=== PATIENT | female | born 1975 | race Caucasian/White ===

== ENCOUNTER 2017-03-26 05:27 | Emergency (ER) | payer OTHER ==
--- NOTE | 2017-03-26 06:43 | DIAGNOSTIC IMAGING REPORT ---
PROCEDURE: XR CHEST 1 VIEW INDICATION: CHEST PAIN TECHNIQUE: Portable AP view (0605 hours). COMPARISON: None. FINDINGS: Allowing for left pacemaker /defibrillator, and suboptimal inspiration, lungs are clear. Heart and mediastinum are normal. Thorax is normal. IMPRESSION: 1. Left subclavian pacemaker/defibrillator. 2. Otherwise negative chest.
--- NOTE | 2017-03-26 07:08 | ED NURSING NOTES ---
Clinical Report - Nurses [facility] [address] [place] [address] 03/26/2017 5:28 [id number] Triage time 05:31. Chief Complaint: CHEST PAIN and SHORTNESS OF BREATH. --05:38 Rossy Barrera R.N. 05:31 03/26/17. BP: 189/74 taken on the left arm, while lying. HR: 84 (regular and normal rate). RR: 18 (regular and unlabored). O2 saturation: 100% on room air. Temp: 97.8 F (oral). Pain level now: 05/07. --05:38 Rossy Barrera R.N. Weight: 74.3 kg stated. Height/Length: 59 inches Per Patient. BMI: 33.1. --05:37 Rossy Barrera R.N. Medications Lasix Oral (Tablet 20 mg) 1 tablet, daily. --05:33 Rossy Barrera R.N. Lisinopril Oral (Tablet 20 mg) 1 tablet, daily. --05:33 Rossy Barrera R.N. Allergies No Known Drug Allergy. --05:33 Rossy Barrera R.N. History Arrived by private vehicle. Historian: patient. Primary physician ([place]). This started just prior to arrival. Onset was abrupt. Symptoms still present (about 0200 AM). She has had moderate difficulty breathing (0200 AM - still present). She has had nausea. PAST MEDICAL HX: Last normal menstrual period- February 07 2017. SOCIAL HX: Light tobacco smoker (cigarette)- less than 1/2 a pack per day. No alcohol use or drug use. SELF HARM ASSESSMENT: A self harm assessment was performed. The patient answered "no" to the question "Have you recently felt down, depressed, or hopeless?", "Have you noticed less interest or pleasure in doing things?", "Do you have thoughts of harming or killing yourself?", "Are you here because you tried to hurt yourself?", "Have you ever tried to hurt yourself before today?", "Have you recently had thoughts about harming or killing others?" and "Do you have any dangerous items in your possession?". --05:38 Rossy Barrera R.N. PROBLEMS: Pacemaker. Cardiomyopathy. --05:35 Rossy Barrera R.N. ADDITIONAL SURGERIES: Cholecystectomy. . Pacemaker. --05:35 Rossy Barrera R.N. Interventions ID band on patient. --05:38 Rossy Barrera R.N. PHYSICAL ASSESSMENT Ambulatory to room. GENERAL / NEURO / PSYCH: Alert. Oriented X 4. Appears in no acute distress. HEENT: Mucous membranes are pink. RESPIRATORY: Respirations not labored. Chest nontender. Breath sounds within normal limits. CVS: Cardiac rhythm: A/V sequential pacing. Heart sounds within normal limits. Pulses within normal limits. Capillary refill less than 2 seconds. GI / : Abdomen soft and nontender. EXTREMITIES: No lower extremity edema. SKIN: Skin is warm and dry. Normal skin turgor. Skin is non-tender. --05:39 Rossy Barrera R.N. 06:18 03/26/17. BP: 120/74. HR: 78. O2 saturation: 100% on nasal cannula at 2 liters/minute. --06:20 Brian Meyer R.N. NURSING PROGRESS NOTES 05:34 03/26/2017 Aspirin PO 325 mg given. Allergies verified and confirmed 5 rights. --05:35 Yosvany Wheeler R.N. Two patient identifiers checked. Call light placed in reach. Side rails up x 1. Bed placed in lowest position. Brakes of bed on. --05:39 Rossy Barrera R.N. Patient ready for evaluation- chart flagged. --05:39 Rossy Barrera R.N. teletypesetter monitor, pulse oximeter and NIBP monitor placed on patient; front desk monitor- Lead II; monitor alarms on. --05:39 Rossy Barrera R.N. Reassurance given to the patient. --05:40 Rossy Barrera R.N. EKG time: (0538 AM). EKG was ordered, performed by a tech and shown to the ED physician. --05:40 Kisha Maldonado 05:40 03/26/2017 Site #1 started via IV in the left antecubital space with an 20g angiocath, with aseptic technique and good blood return; one attempt. Blood drawn: rainbow set. Labeled in the presence of the patient and sent to the lab. Saline lock flushed with 10 mL saline. --05:45 Brian Meyer R.N. 05:49 03/26/2017 Nitroglycerin SL Tablets 0.4 mg given. Allergies verified and confirmed 5 rights. --05:49 Brian Meyer R.N. ( 02 applied per order). --05:49 Brian Meyer R.N. 05:56 03/26/2017 Nitroglycerin SL Tablets 0.4 mg given. Allergies verified and confirmed 5 rights. --05:56 Brian Meyer R.N. ( Portable xray at bedside). --06:05 Rossy Barrera R.N. 06:19 03/26/2017 Nitroglycerin SL Tablets 0.4 mg given. Allergies verified and confirmed 5 rights. --06:19 Brian Meyer R.N. 06:27 03/26/2017 NITROGLYCERIN PASTE Topical Paste 1 inch. Applied to the right chest. Allergies verified and confirmed 5 rights. --06:27 Rossy Barrera R.N. 06:15 03/26/17. BP: 124/66 taken on the right arm, while lying. HR: 89 (regular and normal rate). RR: 18 (regular, unlabored and shallow). O2 saturation: 100% on nasal cannula at 2 liters/minute. Temp: deferred. Pain level now: 12/07. --06:28 Rossy Barrera R.N. Reassessment after medication administered. Overall patient status is improved- she states feels better. CVS: The patient reports left-sided chest pain is gone now, still present but improving and currently described as radiating to the neck and associated with shortness of breath. --06:29 Rossy Barrera R.N. EKG time: (0633 AM). EKG was ordered, performed by a tech and shown to the ED physician. ( 2nd EKG). --06:36 Kisha Maldonado ( ADMIT H+P FORM GIVEN). --06:45 [place], ER Materials Scientist 06:51 03/26/2017 Insulin Reg Subcutaneous 5 unit given. Given in the left upper arm. Allergies verified and confirmed 5 rights. (witnessed by Fidel Rn). --06:51 Rossy Barrera R.N. Finger stick glucose: 267 mg/dL; ordered; performed by tech; result shown to the ED physician. --08:44 Ginger Rojo 07:35. Patient ID band checked for patient name and birthdate: patient confirmed. Blood samples drawn from the right antecubital space with butterfly by nurse per protocol ; labeled in presence of the patient and sent to lab held: [facility]. ( Patient reported to this RN that she wanted to leave AMA rather than being admitted. She stated, "I have to get home to my kids, and I have a court date on Tuesday I can't miss." ED Physician notified. This RN was present while ED physician extensively explained the risks of leaving the hospital AMA and the benefits of staying for further evaluation and treatment. Patient declined to be admitted, stating "I can't stay. I want to be with my kids."). --08:50 Iram Jackson R.N. 07:10 03/26/17. BP: 128/59. HR: 84. RR: 20. O2 saturation: 100%. Temp: deferred. Pain level now: 0/10. --08:50 Iram Jackson R.N. 08:57 03/26/17. Patient informed about reason for wait and about plan of care. --08:57 Iram Jackson R.N. 08:56 03/26/17. BP: 117/63. HR: 75. RR: 19. O2 saturation: 98%. Temp: deferred. Pain level now: 0/10. --08:57 Iram Jackson R.N. 09:41 03/26/2017 Metformin PO Tablets 1000 mg given. Allergies verified and confirmed 5 rights. --09:41 Iram Jackson R.N. ( Nitro paste removed at 09:00). --10:06 Iram Jackson R.N. DISPOSITION / DISCHARGE 09:41 03/26/17. BP: 125/73. HR: 79. RR: 17. O2 saturation: 98%. Temp: 98.1 F. Pain level now: 010. --09:44 Iram Jackson R.N. 09:40 03/26/2017 Site #1 removed upon discharge. Manual pressure and bandaid applied. --10:04 Iram Jackson R.N. 09:44 03/26/17. No learning barriers present. Discharge instructions provided and reviewed with the patient. Reviewed warnings. Reviewed medication(s). Treatments reviewed. Reviewed referrals. Reviewed diet. Activity restrictions reviewed. Patient verbalized understanding. Written instructions provided in [place]. The patient was discharged by the physician. She was discharged home. She left the Emergency Department ambulatory and via private vehicle. Patient driving. --09:44 Iram Jackson R.N. Locked/Released at 03/26/2017 14:13 by Iram Jackson R.N.
--- NOTE | 2017-03-26 07:08 | ED CLINICAL REPORT ---
Clinical Report - Physicians/Mid Levels [facility] [address] [place] [address] 03/26/2017 5:28 Patient: KESHAWN HOLMAN Time Seen: 05:41. Arrived- By private vehicle. HISTORY OF PRESENT ILLNESS Chief Complaint: CHEST PAIN. It is described as pressure and it is described as located in the central chest area. This started at 2 AM. It has been constant and waxing/waning. Onset during rest; could not sleep. At its maximum, severity described as 5 / 10. When seen in the E.D., severity described as 5 / 10. Modifying factors- (no change with palpation). Not worsened by deep breaths. No nausea, vomiting, difficulty breathing or diaphoresis. Similar symptoms previously: None. Recent medical care: ( 7 mos ago with Katerine Alcantara). Not recently seen/assessed. REVIEW OF SYSTEMS Has had a tubal ligation. No fever, pedal edema, headache or sore throat or throat. No blurred vision, abdominal pain or pain, fever or eye irritation. No ear pain, cough, difficulty breathing, black stools or bloody stools. No diarrhea, nausea, vomiting, joint pain or difficulty with urination. All systems otherwise negative, except as recorded above. PAST HISTORY PCP: [facility] Nora Alcantara (ret.) Dr Denney - Cardiology PROBLEMS: Pacemaker. Cardiac Arrest 2006 Cardiomyopathy. ADDITIONAL SURGERIES: Cholecystectomy. . Pacemaker. Tubal ligation Hosp: 2006 for cardiac arrest. No history of pulmonary embolism. Risk factors for heart disease- smoking, diabetes and hypertension; for DVT/pulmonary embolism- obesity. Denies the following risk factors for heart disease - elevated cholesterol and family history of heart disease. Denies the following risk factors for thoracic aortic dissection - , connective tissue disorder], prior history of thoracic aortic dissection and coarctation of the aorta. Denies the following risk factors for DVT/PE - history of DVT and pulmonary embolism, recent surgery, recent NC and congestive heart failure. Denies the following risk factors for DVT/PE - cancer, estrogens, immobility and advanced in age. SOCIAL HISTORY Current every day smoker. ADDITIONAL NOTES The nursing notes have been reviewed. PHYSICAL EXAM Vital Signs: 03/26/2017 05:51 O2 saturation: 100%. 03/26/2017 05:31 BP: 189/74. HR: 84. RR: 18. O2 saturation: 100%. Temp: 97.8 F. Pain level now: 10. Appearance: Alert. No acute distress. Eyes: Eyes normal inspection. ENT: Pharynx normal. CVS: Heart sounds normal. Respiratory: No respiratory distress. Breath sounds normal. Chest nontender. Abdomen: Soft and nontender. Skin: Skin warm. Normal skin color. Extremities: Extremities exhibit normal ROM. No lower extremity edema. Neuro: No alteration in mental status. LABS, X-RAYS, AND EKG EKG: No acute ischemia. Normal sinus rhythm. Rate: 70. Normal P waves. Q waves in lead III, aVF, V1, V2, V3, V4, V5 and V6. Non-specific ST segment / T wave abnormalities. Chest X-ray: (NEG EXCEPT PACEMAKER/RR PROCEDURE: XR CHEST 1 VIEW INDICATION: CHEST PAIN TECHNIQUE: Portable AP view (0605 hours). COMPARISON: None. FINDINGS: Allowing for left pacemaker /defibrillator, and suboptimal inspiration, lungs are clear. Heart and mediastinum are normal. Thorax is normal. IMPRESSION: 1. Left subclavian pacemaker/defibrillator. 2. Otherwise negative chest. Dictated by: ARABELLA RICHARDSON MD D: LENA;03/26/17642 <Electronically signed by ARABELLA RICHARDSON MD in OV> 03/26/17642). The X-rays were independently viewed by me and interpreted by the radiologist. Laboratory Tests: CBC w Diff: (RADHA: 03/26/2017 05:35) ( MsgRcvd 03/26/2017 05:43) Final results Test Result Flag Units (Reference) WHITE BLOOD COUNT 10.9 K/uL (4.5-11.5) RED BLOOD COUNT 4.93 M/uL (4.00-5.20) HEMOGLOBIN 14.6 gm/dL (12.0-16.0) HEMATOCRIT 43.4 % (36.0-46.0) MEAN CELL VOLUME 88 fL (80-100) MEAN CORPUSCULAR HGB 30 pg (26-34) MEAN CORPUSCULAR HGB CONC 34 g/dL (31-37) RED CELL DISTRIBUTION WIDTH 13.9 % (11.6-14.8) PLATELET COUNT 260 K/uL (150-400) NEUTROPHIL % 59.5 % (50-75) LYMPH % 31.4 % (25-40) MONO % 7.4 % (3-14) EOSINOPHIL % 1.2 % (0-4) BASOPHIL % 0.5 % (0-2) Troponin-I: (RADHA: 03/26/2017 07:32) ( [facility] 03/26/2017 07:58) Final results Test Result Flag Units (Reference) TROPONIN I <0.05 ng/mL (0.00-1.5) TROPONIN REFERENCE RANGE:<0.1 NEGATIVE0.1-1.5 INDETERMINANT>1.5 POSITIVE CHEM 13 PANEL: (RADHA: 03/26/2017 05:35) ( [facility] 03/26/2017 06:07) Final results Test Result Flag Units (Reference) GLUCOSE 347 H mg/dL (70-110) BUN 14 mg/dL (7-18) CREATININE 0.7 mg/dL (0.6-1.3) Estimated GFR >60 mL/min Estimated GFR- >60 mL/min Note: Persistent reduction over 3 months in eGFR<60 mL/min/1.73 m2 defines CKD. Patients with eGFR values>=60 mL/min/1.73 m2 may also have CKD if evidence ofpersistent proteinuria. Additional information may be foundat [email or web address].org. SODIUM 133 L mmol/L (136-145) POTASSIUM 3.8 mmol/L (3.5-5.1) CHLORIDE 96 L mmol/L (98-107) CARBON DIOXIDE 27 mmol/L (21-32) CALCIUM 9.0 mg/dL (8.5-10.1) TOTAL PROTEIN 7.7 g/dL (6.4-8.2) ALBUMIN 3.5 g/dL (3.3-5.0) BILIRUBIN, TOTAL 0.5 mg/dL (0.0-1.0) ALKALINE PHOSPHATASE 79 U/L (46-116) AST (SGOT) 14 L U/L (15-37) ALT (SGPT) 22 U/L (12-78) MAGNESIUM 1.6 L mg/dL (1.8-2.4) CPK 47 U/L (24-260) TROPONIN I <0.05 ng/mL (0.00-1.5) TROPONIN REFERENCE RANGE:<0.1 NEGATIVE0.1-1.5 INDETERMINANT>1.5 POSITIVE . PROGRESS AND PROCEDURES Course of Care: 05:59 03/26/17. Initial evaluation is complete. Pain decreased from 6 to 4 with single NTG, 06:18 03/26/17. Pain is 2/10 after second NTG Blood sugar is 375, troponin is negative Wells criteria for PE 0 06:52 03/26/17. Dr Armenta agrees to care for patient. 07:27 03/26/17. Pt states that she will not be admitted. A long discussion does not change her mind. She will stay for a second troponin. 08:28 03/26/17. Second troponin is negative. With two EKGs and two troponins negative for NC at about 6 hours after the onset of pain, it is unlikely that this is an NC. It certainly could be unstable angina. She really needs admission and stress testing. She is adamant that she will not stay. I explain that the stay would be short and that she would be able to meet her obligations. She still wants to go home despite of a possible fatal outcome. She now tells me that she was on metformin 1000 mg per day but had stopped taking it. Critical care performed (40 minutes). Time is exclusive of separately billable procedures. Time includes: direct patient care, patient reassessment, coordination of patient care, interpretation of data (laboratory data and chest xrays), review of patient's medical records, medical consultation and documentation of patient care- see progress notes. Wells clinical prediction rule (PE): No clinical symptoms of DVT, other diagnosis less likely than PE, immobilization or surgery within 4wks, previous DVT or PE or hemoptysis. No malignancy. Heart rate less than 100 per minute. Disposition orders written (BUT PATIENT REFUSED ADMISSION). Disposition: Discharged (AMA). CLINICAL IMPRESSION Chest pain. Clinical picture does not suggest pulmonary edema or embolism, myocardial infarction, aortic dissection or pneumonia. Clinical picture does not suggest pneumothorax. DIABETES POOR CONTROL. INSTRUCTIONS (YOU MAY BE HAVING A HEART ATTACK YOU NEED FURTHER BLOOD AND EKG TESTING YOU NEED A STRESS TEST. YOU NEED TO BE ADMITTED TO THE HOSPITAL. YOU STAND A SIGNIFICANT CHANCE OF DYING IF YOU GO HOME. IF YOU WANT TO TAKE CARE OF YOUR CHILDREN PLEASE STAY. THEY WILL NEED YOU. IF YOU CHANGE YOUR MIND OR YOUR CHEST PAIN RETURNS PLEASE RETURN TO THE ED CALL DR DENNEY ON TUESDAY AND BE SEEN TUESDAY IF POSSIBLE. TAKE A BABY ASPIRIN A DAY.). Prescription Medications: Nitrostat 0.4 mg: dissolve 1 tablet under tongue every 5 minutes as needed for chest pain. Dispense one hundred (100). No refills. Substitution is permissible. Metformin 500 mg: Take 1 orally every 12 hours. Dispense thirty (30). No refills. Follow-up with: Marry Denney MD, Cardiology, , [facility] - [address] [facility], [facility], [address] Follow up Tuesday in three days. Call for the next available appointment. (Electronically signed by Aaron Patel MD 03/26/2017 17:52)
--- NOTE | 2017-03-26 07:08 | ED CLINICAL REPORT ---
Clinical Report - Physicians/Mid Levels [facility] [address] [place] [address] 03/26/2017 5:28 Patient: KESHAWN HOLMAN Time Seen: 05:41. Arrived- By private vehicle. HISTORY OF PRESENT ILLNESS Chief Complaint: CHEST PAIN. It is described as pressure and it is described as located in the central chest area. This started at 2 AM. It has been constant and waxing/waning. Onset during rest; could not sleep. At its maximum, severity described as 5 / 10. When seen in the E.D., severity described as 5 / 10. Modifying factors- (no change with palpation). Not worsened by deep breaths. No nausea, vomiting, difficulty breathing or diaphoresis. Similar symptoms previously: None. Recent medical care: ( 7 mos ago with Katerine Alcantara). Not recently seen/assessed. REVIEW OF SYSTEMS Has had a tubal ligation. No fever, pedal edema, headache or sore throat or throat. No blurred vision, abdominal pain or pain, fever or eye irritation. No ear pain, cough, difficulty breathing, black stools or bloody stools. No diarrhea, nausea, vomiting, joint pain or difficulty with urination. All systems otherwise negative, except as recorded above. PAST HISTORY PCP: [facility] Nora Alcantara (ret.) Dr Denney - Cardiology PROBLEMS: Pacemaker. Cardiac Arrest 2006 Cardiomyopathy. ADDITIONAL SURGERIES: Cholecystectomy. . Pacemaker. Tubal ligation Hosp: 2006 for cardiac arrest. No history of pulmonary embolism. Risk factors for heart disease- smoking, diabetes and hypertension; for DVT/pulmonary embolism- obesity. Denies the following risk factors for heart disease - elevated cholesterol and family history of heart disease. Denies the following risk factors for thoracic aortic dissection - , connective tissue disorder], prior history of thoracic aortic dissection and coarctation of the aorta. Denies the following risk factors for DVT/PE - history of DVT and pulmonary embolism, recent surgery, recent OH and congestive heart failure. Denies the following risk factors for DVT/PE - cancer, estrogens, immobility and advanced in age. SOCIAL HISTORY Current every day smoker. ADDITIONAL NOTES The nursing notes have been reviewed. PHYSICAL EXAM Vital Signs: 03/26/2017 05:51 O2 saturation: 100%. 03/26/2017 05:31 BP: 189/74. HR: 84. RR: 18. O2 saturation: 100%. Temp: 97.8 F. Pain level now: 10. Appearance: Alert. No acute distress. Eyes: Eyes normal inspection. ENT: Pharynx normal. CVS: Heart sounds normal. Respiratory: No respiratory distress. Breath sounds normal. Chest nontender. Abdomen: Soft and nontender. Skin: Skin warm. Normal skin color. Extremities: Extremities exhibit normal ROM. No lower extremity edema. Neuro: No alteration in mental status. LABS, X-RAYS, AND EKG EKG: No acute ischemia. Normal sinus rhythm. Rate: 70. Normal P waves. Q waves in lead III, aVF, V1, V2, V3, V4, V5 and V6. Non-specific ST segment / T wave abnormalities. Chest X-ray: (NEG EXCEPT PACEMAKER/RR PROCEDURE: XR CHEST 1 VIEW INDICATION: CHEST PAIN TECHNIQUE: Portable AP view (0605 hours). COMPARISON: None. FINDINGS: Allowing for left pacemaker /defibrillator, and suboptimal inspiration, lungs are clear. Heart and mediastinum are normal. Thorax is normal. IMPRESSION: 1. Left subclavian pacemaker/defibrillator. 2. Otherwise negative chest. Dictated by: ARABELLA RICHARDSON MD D: LENA;03/26/17642 <Electronically signed by ARABELLA RICHARDSON MD in [facility]> 03/26/17642). The X-rays were independently viewed by me and interpreted by the radiologist. Laboratory Tests: CBC w Diff: (RADHA: 03/26/2017 05:35) ( MsgRcvd 03/26/2017 05:43) Final results Test Result Flag Units (Reference) WHITE BLOOD COUNT 10.9 K/uL (4.5-11.5) RED BLOOD COUNT 4.93 M/uL (4.00-5.20) HEMOGLOBIN 14.6 gm/dL (12.0-16.0) HEMATOCRIT 43.4 % (36.0-46.0) MEAN CELL VOLUME 88 fL (80-100) MEAN CORPUSCULAR HGB 30 pg (26-34) MEAN CORPUSCULAR HGB CONC 34 g/dL (31-37) RED CELL DISTRIBUTION WIDTH 13.9 % (11.6-14.8) PLATELET COUNT 260 K/uL (150-400) NEUTROPHIL % 59.5 % (50-75) LYMPH % 31.4 % (25-40) MONO % 7.4 % (3-14) EOSINOPHIL % 1.2 % (0-4) BASOPHIL % 0.5 % (0-2) Troponin-I: (RADHA: 03/26/2017 07:32) ( [facility] 03/26/2017 07:58) Final results Test Result Flag Units (Reference) TROPONIN I <0.05 ng/mL (0.00-1.5) TROPONIN REFERENCE RANGE:<0.1 NEGATIVE0.1-1.5 INDETERMINANT>1.5 POSITIVE CHEM 13 PANEL: (RADHA: 03/26/2017 05:35) ( [facility] 03/26/2017 06:07) Final results Test Result Flag Units (Reference) GLUCOSE 347 H mg/dL (70-110) BUN 14 mg/dL (7-18) CREATININE 0.7 mg/dL (0.6-1.3) Estimated GFR >60 mL/min Estimated GFR- >60 mL/min Note: Persistent reduction over 3 months in eGFR<60 mL/min/1.73 m2 defines CKD. Patients with eGFR values>=60 mL/min/1.73 m2 may also have CKD if evidence ofpersistent proteinuria. Additional information may be foundat www.[email or web address].org. SODIUM 133 L mmol/L (136-145) POTASSIUM 3.8 mmol/L (3.5-5.1) CHLORIDE 96 L mmol/L (98-107) CARBON DIOXIDE 27 mmol/L (21-32) CALCIUM 9.0 mg/dL (8.5-10.1) TOTAL PROTEIN 7.7 g/dL (6.4-8.2) ALBUMIN 3.5 g/dL (3.3-5.0) BILIRUBIN, TOTAL 0.5 mg/dL (0.0-1.0) ALKALINE PHOSPHATASE 79 U/L (46-116) AST (SGOT) 14 L U/L (15-37) ALT (SGPT) 22 U/L (12-78) MAGNESIUM 1.6 L mg/dL (1.8-2.4) CPK 47 U/L (24-260) TROPONIN I <0.05 ng/mL (0.00-1.5) TROPONIN REFERENCE RANGE:<0.1 NEGATIVE0.1-1.5 INDETERMINANT>1.5 POSITIVE . PROGRESS AND PROCEDURES Course of Care: 05:59 03/26/17. Initial evaluation is complete. Pain decreased from 6 to 4 with single NTG, 06:18 03/26/17. Pain is 2/10 after second NTG Blood sugar is 375, troponin is negative Wells criteria for PE 0 06:52 03/26/17. Dr Armenta agrees to care for patient. 07:27 03/26/17. Pt states that she will not be admitted. A long discussion does not change her mind. She will stay for a second troponin. 08:28 03/26/17. Second troponin is negative. With two EKGs and two troponins negative for OH at about 6 hours after the onset of pain, it is unlikely that this is an OH. It certainly could be unstable angina. She really needs admission and stress testing. She is adamant that she will not stay. I explain that the stay would be short and that she would be able to meet her obligations. She still wants to go home despite of a possible fatal outcome. She now tells me that she was on metformin 1000 mg per day but had stopped taking it. Critical care performed (40 minutes). Time is exclusive of separately billable procedures. Time includes: direct patient care, patient reassessment, coordination of patient care, interpretation of data (laboratory data and chest xrays), review of patient's medical records, medical consultation and documentation of patient care- see progress notes. Wells clinical prediction rule (PE): No clinical symptoms of DVT, other diagnosis less likely than PE, immobilization or surgery within 4wks, previous DVT or PE or hemoptysis. No malignancy. Heart rate less than 100 per minute. Disposition orders written (BUT PATIENT REFUSED ADMISSION). Disposition: Discharged (AMA). CLINICAL IMPRESSION Chest pain. Clinical picture does not suggest pulmonary edema or embolism, myocardial infarction, aortic dissection or pneumonia. Clinical picture does not suggest pneumothorax. DIABETES POOR CONTROL. INSTRUCTIONS (YOU MAY BE HAVING A HEART ATTACK YOU NEED FURTHER BLOOD AND EKG TESTING YOU NEED A STRESS TEST. YOU NEED TO BE ADMITTED TO THE HOSPITAL. YOU STAND A SIGNIFICANT CHANCE OF DYING IF YOU GO HOME. IF YOU WANT TO TAKE CARE OF YOUR CHILDREN PLEASE STAY. THEY WILL NEED YOU. IF YOU CHANGE YOUR MIND OR YOUR CHEST PAIN RETURNS PLEASE RETURN TO THE ED CALL DR DENNEY ON TUESDAY AND BE SEEN TUESDAY IF POSSIBLE. TAKE A BABY ASPIRIN A DAY.). Prescription Medications: Nitrostat 0.4 mg: dissolve 1 tablet under tongue every 5 minutes as needed for chest pain. Dispense one hundred (100). No refills. Substitution is permissible. Metformin 500 mg: Take 1 orally every 12 hours. Dispense thirty (30). No refills. Follow-up with: Marry Denney MD, Cardiology, , [facility] - [address] [facility], [facility], [address] Follow up Tuesday in three days. Call for the next available appointment. (Electronically signed by Aaron Patel MD 03/26/2017 17:52)
--- NOTE | 2017-03-26 07:08 | ED ORDER SUMMARY ---
..... Patient: KESHAWN HOLMAN OrderSheet [facility] VisitID: [id number] [place] [address] 41y, F Registration Date/Time: 03/26/2017 ORDER SHEET Weight: 74.3 kg (stated) Allergies: No Known Drug Allergy GENERAL ORDERS: Guest Relations Receptionist (Continuous) (CP) (05:34 03/26/2017 JQuivey R.N. per protocol) (5:40 CBradburn R.N.) Cardiac Panel Stat (05:35 03/26/2017 JQuivey R.N. per protocol) (Ack 5:39 CHagerty ER Accounts Payable Analyst) (5:40 CBradburn R.N.) Pulse oximeter (05:35 03/26/2017 JQuivey R.N. per protocol) (5:40 CBradburn R.N.) EKG - ER Stat (05:35 03/26/2017 JQuivey R.N. per protocol) (Ack 5:39 CHagerty ER Accounts Payable Analyst) (5:40 Kathyaekimana) Oxygen (2 L/min) (NC) (05:47 03/26/2017 Susannah AKHTAR) (5:49 DDavis R.N.) - (Check [place] to see if they have records. No hospitalizations or ED records.) (05:53 03/26/2017 Susannah AKHTAR) (Ack 6:25 CHagerty ER Accounts Payable Analyst) (7:05 CHagerty ER Accounts Payable Analyst) Chest 1V Urgent (05:59 03/26/2017 Susannah AKHTAR) (6:04 CBradburn R.N.) EKG - ER Repeat Stat (06:19 03/26/2017 Susannah AKHTAR) (Ack 6:25 CHagerty ER Accounts Payable Analyst) (6:34 Viryegekimana) Troponin-I (ON A NEW BLOOD DRAW AT 8 AM.) Urgent (06:20 03/26/2017 Susannah AKHTAR) (Ack 6:25 José Miguel ER Accounts Payable Analyst) (8:26 RMarsden R.N.) POC Glucose (AT 8 AM) (06:43 03/26/2017 Susannah AKHTAR) (8:45 RMarsden R.N.) - (ADMIT FORM TO PATIENT PLEASE) (06:43 03/26/2017 Susannah AKHTAR) (6:44 [facility] ER Accounts Payable Analyst) MEDICATION ORDERS: Aspirin PO 325 mg (NOW) (05:35 03/26/2017 Lisa R.N. per protocol) (5:35 Lisa R.N.) NitroGLYCERIN SL 0.4 mg (x3 PRN Chest Pain) (05:47 03/26/2017 Susannah AKHTAR) (5:49 DDavis R.N.) NitroGLYCERIN Paste Topical 1 in. (to CW) (06:19 03/26/2017 Susannah AKHTAR) (Ack 6:23 CBradburn R.N.) (6:27 CBradburn R.N.) Insulin Reg Subcut 5 units (NOW) (06:42 03/26/2017 Susannah AKHTAR) (Ack 6:46 CBradburn R.N.) (6:51 CBradburn R.N.) - (METFORMIN 1000 MG PO) (07:28 03/26/2017 Susannah AKHTAR) (Ack 8:51 RMarsden R.N.) (9:41 RMarsden R.N.) IV FLUIDS: IV Saline Lock (05:35 03/26/2017 Lisa Alvarado.N. per protocol) (5:45 DDavis R.N.) IV Saline Lock (05:47 03/26/2017 Susannah AKHTAR) (Cancelled: Duplicate Order5:49 DDavis R.N.) ORDER SHEET NOTES: [Electronically signed by Iram Jackson R.N. (14:13 03/26/2017)] [Electronically signed by Aaron Patel MD (17:52 03/26/2017)] [Electronically locked/signed by Iram Jackson R.N. (14:13 03/26/2017)]
--- NOTE | 2017-03-26 07:08 | ED ORDER SUMMARY ---
..... Patient: KESHAWN HOLMAN OrderSheet [facility] VisitID: [id number] [place] [address] 41y, F Registration Date/Time: 03/26/2017 ORDER SHEET Weight: 74.3 kg (stated) Allergies: No Known Drug Allergy GENERAL ORDERS: Line Out Man (Continuous) (CP) (05:34 03/26/2017 JQuivey R.N. per protocol) (5:40 CBradburn R.N.) Cardiac Panel Stat (05:35 03/26/2017 JQuivey R.N. per protocol) (Ack 5:39 CHagerty ER Hides And Skins Colorer) (5:40 CBradburn R.N.) Pulse oximeter (05:35 03/26/2017 JQuivey R.N. per protocol) (5:40 CBradburn R.N.) EKG - ER Stat (05:35 03/26/2017 JQuivey R.N. per protocol) (Ack 5:39 CHagerty ER Hides And Skins Colorer) (5:40 Kathyaekimana) Oxygen (2 L/min) (NC) (05:47 03/26/2017 Susannah AKHTAR) (5:49 DDavis R.N.) - (Check [place] to see if they have records. No hospitalizations or ED records.) (05:53 03/26/2017 Susannah AKHTAR) (Ack 6:25 CHagerty ER Hides And Skins Colorer) (7:05 CHagerty ER Hides And Skins Colorer) Chest 1V Urgent (05:59 03/26/2017 Susannah AKHTAR) (6:04 CBradburn R.N.) EKG - ER Repeat Stat (06:19 03/26/2017 Susannah AKHTAR) (Ack 6:25 CHagerty ER Hides And Skins Colorer) (6:34 Viryegekimana) Troponin-I (ON A NEW BLOOD DRAW AT 8 AM.) Urgent (06:20 03/26/2017 Susannah AKHTAR) (Ack 6:25 José Miguel ER Hides And Skins Colorer) (8:26 RMarsden R.N.) POC Glucose (AT 8 AM) (06:43 03/26/2017 Susannah AKHTAR) (8:45 RMarsden R.N.) - (ADMIT FORM TO PATIENT PLEASE) (06:43 03/26/2017 Susannah AKHTAR) (6:44 [facility] ER Hides And Skins Colorer) MEDICATION ORDERS: Aspirin PO 325 mg (NOW) (05:35 03/26/2017 Lisa R.N. per protocol) (5:35 Lisa R.N.) NitroGLYCERIN SL 0.4 mg (x3 PRN Chest Pain) (05:47 03/26/2017 Susannah AKHTAR) (5:49 DDavis R.N.) NitroGLYCERIN Paste Topical 1 in. (to CW) (06:19 03/26/2017 Susannah AKHTAR) (Ack 6:23 CBradburn R.N.) (6:27 CBradburn R.N.) Insulin Reg Subcut 5 units (NOW) (06:42 03/26/2017 Susannah AKHTAR) (Ack 6:46 CBradburn R.N.) (6:51 CBradburn R.N.) - (METFORMIN 1000 MG PO) (07:28 03/26/2017 Susannah AKHTAR) (Ack 8:51 RMarsden R.N.) (9:41 RMarsden R.N.) IV FLUIDS: IV Saline Lock (05:35 03/26/2017 Lisa Alvarado.N. per protocol) (5:45 DDavis R.N.) IV Saline Lock (05:47 03/26/2017 Susannah AKHTAR) (Cancelled: Duplicate Order5:49 DDavis R.N.) ORDER SHEET NOTES: [Electronically signed by Iram Jackson R.N. (14:13 03/26/2017)] [Electronically signed by Aaron Patel MD (17:52 03/26/2017)] [Electronically locked/signed by Iram Jackson R.N. (14:13 03/26/2017)]
--- NOTE | 2017-03-26 17:52 | ED MAR SUMMARY ---
..... Medication Administration Record [facility] [address] [facility] [place] [address] Patient: KESHAWN HOLMAN Visit ID: [id number] 41y, F Weight: 74.3 kg Height/Length: 59 in BMI: 33.1 ALLERGIES: No Known Drug Allergy Given 05:34 03/26/2017 Yosvany Wheeler R.N. Medication Administered: ASPIRIN [PO], Dose: 325 mg PO. Medication Ordered: Aspirin PO 325 mg (NOW). Given 05:49 03/26/2017 Brian Meyer R.N. Medication Administered: NITROGLYCERIN [SL], Dose: 0.4 mg Tablets SL. Medication Ordered: NitroGLYCERIN SL 0.4 mg (x3 PRN Chest Pain). Given 05:56 03/26/2017 Brian Meyer R.N. Medication Administered: NITROGLYCERIN [SL], Dose: 0.4 mg Tablets SL. Medication Ordered: NitroGLYCERIN SL 0.4 mg (x3 PRN Chest Pain). Given 06:19 03/26/2017 Brian Meyer R.N. Medication Administered: NITROGLYCERIN [SL], Dose: 0.4 mg Tablets SL. Medication Ordered: NitroGLYCERIN SL 0.4 mg (x3 PRN Chest Pain). Given 06:27 03/26/2017 Rossy Barrera R.N. Medication Administered: NITROGLYCERIN PASTE [TOPICAL], Dose: 1 in. Paste Topical. Medication Ordered: NitroGLYCERIN Paste Topical 1 in. (to CW). Given 06:51 03/26/2017 Rossy Barrera R.N. Medication Administered: INSULIN REG [SUBCUTANEOUS], Dose: 5 unit Subcutaneous. Medication Ordered: Insulin Reg Subcut 5 units (NOW). Given 09:41 03/26/2017 Iram Jackson R.N. Medication Administered: METFORMIN [PO], Dose: 1000 mg Tablets PO. Medication Ordered: - (METFORMIN 1000 MG PO).
--- NOTE | 2017-03-26 17:52 | ED MAR SUMMARY ---
..... Medication Administration Record [facility] [address] [facility] [place] [address] Patient: KESHAWN HOLMAN Visit ID: [id number] 41y, F Weight: 74.3 kg Height/Length: 59 in BMI: 33.1 ALLERGIES: No Known Drug Allergy Given 05:34 03/26/2017 Yosvany Wheeler R.N. Medication Administered: ASPIRIN [PO], Dose: 325 mg PO. Medication Ordered: Aspirin PO 325 mg (NOW). Given 05:49 03/26/2017 Brian Meyer R.N. Medication Administered: NITROGLYCERIN [SL], Dose: 0.4 mg Tablets SL. Medication Ordered: NitroGLYCERIN SL 0.4 mg (x3 PRN Chest Pain). Given 05:56 03/26/2017 Brian Meyer R.N. Medication Administered: NITROGLYCERIN [SL], Dose: 0.4 mg Tablets SL. Medication Ordered: NitroGLYCERIN SL 0.4 mg (x3 PRN Chest Pain). Given 06:19 03/26/2017 Brian Meyer R.N. Medication Administered: NITROGLYCERIN [SL], Dose: 0.4 mg Tablets SL. Medication Ordered: NitroGLYCERIN SL 0.4 mg (x3 PRN Chest Pain). Given 06:27 03/26/2017 Rossy Barrera R.N. Medication Administered: NITROGLYCERIN PASTE [TOPICAL], Dose: 1 in. Paste Topical. Medication Ordered: NitroGLYCERIN Paste Topical 1 in. (to CW). Given 06:51 03/26/2017 Rossy Barrera R.N. Medication Administered: INSULIN REG [SUBCUTANEOUS], Dose: 5 unit Subcutaneous. Medication Ordered: Insulin Reg Subcut 5 units (NOW). Given 09:41 03/26/2017 Iram Jackson R.N. Medication Administered: METFORMIN [PO], Dose: 1000 mg Tablets PO. Medication Ordered: - (METFORMIN 1000 MG PO).
--- NOTE | 2017-03-26 17:52 | ED DISCHARGE INSTRUCTIONS ---
Patient: KESHAWN HOLMAN General Instructions [facility] VisitID: [id number] [place] [address] 41y, F Registration Date/Time: 03/26/2017 Chest pain. DIABETES POOR CONTROL. INSTRUCTIONS (YOU MAY BE HAVING A HEART ATTACK YOU NEED FURTHER BLOOD AND EKG TESTING YOU NEED A STRESS TEST. YOU NEED TO BE ADMITTED TO THE HOSPITAL. YOU STAND A SIGNIFICANT CHANCE OF DYING IF YOU GO HOME. IF YOU WANT TO TAKE CARE OF YOUR CHILDREN PLEASE STAY. THEY WILL NEED YOU. IF YOU CHANGE YOUR MIND OR YOUR CHEST PAIN RETURNS PLEASE RETURN TO THE ED CALL DR DENNEY ON TUESDAY AND BE SEEN TUESDAY IF POSSIBLE. TAKE A BABY ASPIRIN A DAY.). Prescription Medications: Nitrostat 0.4 mg: dissolve 1 tablet under tongue every 5 minutes as needed for chest pain. Dispense one hundred (100). No refills. Substitution is permissible. Metformin 500 mg: Take 1 orally every 12 hours. Dispense thirty (30). No refills. Follow-up with: Marry Denney MD, Cardiology, , [facility] - [address], [facility], [address] Follow up Tuesday in three days. Call for the next available appointment. ADDITIONAL INFORMATION Chest Pain, Uncertain Cause Chest pain can happen for a number of reasons. Sometimes the cause can not be determined. If yourcondition does not seem serious, and your pain does not appear to be coming from your heart, your doctor may recommend watching it closely. Sometimes the signs of a serious problem take more time to appear. Therefore, watch for the warning signs listed below. Home care After your visit, follow these recommendations: Rest today and avoid strenuous activity. Take any prescribed medicine as directed. Follow-up care Follow up with your doctor or this facility as instructed or if you do not start to feel better within 24 hours. Call 911 Get immediate medical attention if any of the following occur: A change in the type of pain: if it feels different, becomes more severe, lasts longer, or begins to spread into your shoulder, arm, neck, jaw or back Shortness of breath or increased pain with breathing Weakness, dizziness, or fainting Rapid heart beat Get prompt medical attention Call your doctor right away if any of the following occur: Cough with dark colored sputum (phlegm) or blood Fever of 100.4F(38C) or higher, or as directed by your health care provider Swelling, pain or redness in one leg You have been given the following additional information: Chest Pain, Uncertain Cause (Electronically signed by Aaron Patel MD 03/26/2017 17:52)
--- NOTE | 2017-03-26 17:52 | ED DISCHARGE INSTRUCTIONS ---
Patient: KESHAWN HOLMAN General Instructions [facility] VisitID: [id number] [place] [address] 41y, F Registration Date/Time: 03/26/2017 Chest pain. DIABETES POOR CONTROL. INSTRUCTIONS (YOU MAY BE HAVING A HEART ATTACK YOU NEED FURTHER BLOOD AND EKG TESTING YOU NEED A STRESS TEST. YOU NEED TO BE ADMITTED TO THE HOSPITAL. YOU STAND A SIGNIFICANT CHANCE OF DYING IF YOU GO HOME. IF YOU WANT TO TAKE CARE OF YOUR CHILDREN PLEASE STAY. THEY WILL NEED YOU. IF YOU CHANGE YOUR MIND OR YOUR CHEST PAIN RETURNS PLEASE RETURN TO THE ED CALL DR DENNEY ON TUESDAY AND BE SEEN TUESDAY IF POSSIBLE. TAKE A BABY ASPIRIN A DAY.). Prescription Medications: Nitrostat 0.4 mg: dissolve 1 tablet under tongue every 5 minutes as needed for chest pain. Dispense one hundred (100). No refills. Substitution is permissible. Metformin 500 mg: Take 1 orally every 12 hours. Dispense thirty (30). No refills. Follow-up with: Marry Denney MD, Cardiology, , [facility] - [address], [facility], [address] Follow up Tuesday in three days. Call for the next available appointment. ADDITIONAL INFORMATION Chest Pain, Uncertain Cause Chest pain can happen for a number of reasons. Sometimes the cause can not be determined. If yourcondition does not seem serious, and your pain does not appear to be coming from your heart, your doctor may recommend watching it closely. Sometimes the signs of a serious problem take more time to appear. Therefore, watch for the warning signs listed below. Home care After your visit, follow these recommendations: Rest today and avoid strenuous activity. Take any prescribed medicine as directed. Follow-up care Follow up with your doctor or this facility as instructed or if you do not start to feel better within 24 hours. Call 911 Get immediate medical attention if any of the following occur: A change in the type of pain: if it feels different, becomes more severe, lasts longer, or begins to spread into your shoulder, arm, neck, jaw or back Shortness of breath or increased pain with breathing Weakness, dizziness, or fainting Rapid heart beat Get prompt medical attention Call your doctor right away if any of the following occur: Cough with dark colored sputum (phlegm) or blood Fever of 100.4F(38C) or higher, or as directed by your health care provider Swelling, pain or redness in one leg You have been given the following additional information: Chest Pain, Uncertain Cause (Electronically signed by Aaron Patel MD 03/26/2017 17:52)
--- NOTE | 2017-03-26 17:53 | ED MED RECONCILIATION SUMMARY ---
Patient: KESHAWN HOLMAN Medication Reconciliation Report [facility] VisitID: [id number] [place] [address] 41y, F Registration Date/Time: 03/26/2017 Weight: 74.3 kg Height/Length: 59 in. BMI: 33.1 ALLERGIES: No Known Drug Allergy The patient's Home Medications are listed below: THE FOLLOWING MEDICATIONS NEED TO BE RECONCILED: Lasix Oral (20 mg) 1 tablet, daily Lisinopril Oral (20 mg) 1 tablet, daily The source(s) of the original Home Medication information: Not obtained. The following Medications were given to the patient in the Emergency Department: Aspirin [PO] PO 325 mg, administered: 03/26/2017 5:34:00 AM Nitroglycerin [SL] SL 0.4 mg, administered: 03/26/2017 5:49:00 AM Nitroglycerin [SL] SL 0.4 mg, administered: 03/26/2017 5:56:00 AM Nitroglycerin [SL] SL 0.4 mg, administered: 03/26/2017 6:19:00 AM NITROGLYCERIN PASTE [TOPICAL] Topical 1 in., administered: 03/26/2017 6:27:00 AM Insulin Reg [Subcutaneous] Subcutaneous 5 unit, administered: 03/26/2017 6:51:00 AM Metformin [PO] PO 1000 mg, administered: 03/26/2017 9:41:00 AM The following Medications were prescribed to the patient: Nitrostat 0.4 mg: dissolve 1 tablet under tongue every 5 minutes as needed for chest pain. Dispense one hundred (100). No refills. Substitution is permissible. -- Aaron Patel MD Metformin 500 mg: Take 1 orally every 12 hours. Dispense thirty (30). No refills. -- Aaron Patel MD
--- NOTE | 2017-03-26 17:53 | ED MED RECONCILIATION SUMMARY ---
Patient: KESHAWN HOLMAN Medication Reconciliation Report [facility] VisitID: [id number] [place] [address] 41y, F Registration Date/Time: 03/26/2017 Weight: 74.3 kg Height/Length: 59 in. BMI: 33.1 ALLERGIES: No Known Drug Allergy The patient's Home Medications are listed below: THE FOLLOWING MEDICATIONS NEED TO BE RECONCILED: Lasix Oral (20 mg) 1 tablet, daily Lisinopril Oral (20 mg) 1 tablet, daily The source(s) of the original Home Medication information: Not obtained. The following Medications were given to the patient in the Emergency Department: Aspirin [PO] PO 325 mg, administered: 03/26/2017 5:34:00 AM Nitroglycerin [SL] SL 0.4 mg, administered: 03/26/2017 5:49:00 AM Nitroglycerin [SL] SL 0.4 mg, administered: 03/26/2017 5:56:00 AM Nitroglycerin [SL] SL 0.4 mg, administered: 03/26/2017 6:19:00 AM NITROGLYCERIN PASTE [TOPICAL] Topical 1 in., administered: 03/26/2017 6:27:00 AM Insulin Reg [Subcutaneous] Subcutaneous 5 unit, administered: 03/26/2017 6:51:00 AM Metformin [PO] PO 1000 mg, administered: 03/26/2017 9:41:00 AM The following Medications were prescribed to the patient: Nitrostat 0.4 mg: dissolve 1 tablet under tongue every 5 minutes as needed for chest pain. Dispense one hundred (100). No refills. Substitution is permissible. -- Aaron Patel MD Metformin 500 mg: Take 1 orally every 12 hours. Dispense thirty (30). No refills. -- Aaron Patel MD
== END 2017-03-26 09:44 | disposition home or self-care (01) ==
LOC: ED SRH 05:27 → TRANS SRH 06:40 → ED SRH 06:40
DX: R07.9 Chest pain, unspecified (principal); E11.65 Type 2 diabetes mellitus with hyperglycemia; Z79.899 Other long term (current) drug therapy; F17.219 Nicotine dependence, cigarettes, with unspecified nicotine-induced disorders
CPT/HCPCS: 90098; 90100; 90616; 92610; 92720; 95059